=== PATIENT | male | born 1990 | race Caucasian/White ===

== ENCOUNTER 2019-07-17 01:39 | Emergency (ER) | payer MEDICAID ==
[~2019-07-17] VITALS: Ht 167.6 cm; Wt 73.0 kg
[2019-07-17] MEDS ORDERED: SODIUM CHLORIDE 0.9% 1,000 ML IV ONE (02:18)
[2019-07-17] MEDS ORDERED: LORAZEPAM 2MG/ML CPJ IM ONE (06:30)
[2019-07-17] MEDS ORDERED: OLANZAPINE 10 MG/VIAL IM ONE (06:30)
[2019-07-17] MEDS ORDERED: DIPHENHYDRAMINE 50MG/ML VIAL IM ONE (06:30)
[2019-07-17 06:50] LABS: CHLORIDE 104 mEq/L (98-107)
[2019-07-17 06:53] LABS: CLARITY URINE CLEAR (CLEAR); COLOR URINE YELLOW (YELLOW); KETONES URINE NEGATIVE (NEGATIVE); LEUKOCYTE ESTERASE URINE TRACE (NEGATIVE); NITRITE URINE NEGATIVE (NEGATIVE); OCCULT BLOOD URINE NEGATIVE (NEGATIVE); PROTEIN URINE NEGATIVE (NEGATIVE); SPECIFIC GRAVITY URINE 1.007 (1.005-1.030); UROBILINOGEN URINE 0.2 E.U./dL (0.2-1.0)
[2019-07-17 06:54] LABS: BASOPHILS % 0.5 % (0.0-2.0); EOSINOPHILS % 0.1 % (0.0-5.0); ETHANOL BLOOD < 10 mg/dL; HEMATOCRIT. 44.1 % (42.0-52.0); HEMOGLOBIN. 14.9 g/dL (14.0-18.0); LYMPHOCYTES % 17.4 % (20.0-50.0); MEAN CORPUSCULAR VOLUME 91.8 fL (80.0-94.0); MEAN PLATELET VOLUME 7.1 fl (7.4-10.4); MONOCYTES % 9.4 % (2.0-8.0); NEUTROPHILS % 72.6 % (40.0-76.0); PLATELET 286 x1000/uL (130-400); RED CELL DISTRIBUTION WIDTH 13.2 % (11.6-14.6)
[2019-07-17 07:06] LABS: *AMPHETAMINES SCREEN URINE PRESUMTIVE POSITIVE (NEGATIVE); *BARBITURATES SCREEN URINE NEGATIVE (NEGATIVE); *BENZODIAZEPINES SCREEN URINE NEGATIVE (NEGATIVE); *COCAINE SCREEN URINE NEGATIVE (NEGATIVE); METHADONE URINE SCREEN NEGATIVE (NEGATIVE); OPIATES URINE SCREEN NEGATIVE (NEGATIVE); PHENCYCLIDINE URINE SCREEN NEGATIVE (NEGATIVE)
[2019-07-17 07:07] LABS: CANNABINOID URINE SCREEN PRESUMTIVE POSITIVE (NEGATIVE)
[2019-07-17 12:20] VITALS: BP 138/83
== END 2019-07-17 12:32 ==
LOC: ER 01:55
DX: F23 Brief psychotic disorder (principal); F15.10 Other stimulant abuse, uncomplicated; F16.10 Hallucinogen abuse, uncomplicated
CPT/HCPCS: 36415; 80053; 80305; 80320; 81003; 85025; 96372; 99285; J1200; J2060; J3490; J7030; G0480

== ENCOUNTER 2022-10-13 20:57 | Emergency (ER) | payer MEDICAID, OTHER ==
[~2022-10-13] VITALS: Ht 167.6 cm; Wt 74.0 kg
[2022-10-13 21:57] LABS: BASOPHILS % 1.1 % (0.0-2.0); EOSINOPHILS % 1.1 % (0.0-5.0); HEMATOCRIT. 37.4 % (42.0-52.0); HEMOGLOBIN. 12.8 g/dL (14.0-18.0); LYMPHOCYTES % 14.1 % (20.0-50.0); MEAN CORPUSCULAR HEMOGLOBIN 31.7 pg (28.0-32.0); MEAN CORPUSCULAR VOLUME 92.3 fL (80.0-94.0); MEAN PLATELET VOLUME 8.1 fl (7.4-10.4); MONOCYTES % 6.3 % (2.0-8.0); NEUTROPHILS % 77.4 % (40.0-76.0); PLATELET 245 x1000/uL (130-400); RED BLOOD CELL COUNT 4.05 mill/uL (4.7-6.1); RED CELL DISTRIBUTION WIDTH 13.4 % (11.6-14.6)
[2022-10-13 22:09] LABS: CHLORIDE 102 mEq/L (98-107)
[2022-10-13 22:15] LABS: ETHANOL BLOOD < 10 mg/dL (-10)
[2022-10-13 22:15] LABS: CLARITY URINE CLEAR (CLEAR); COLOR URINE YELLOW (YELLOW); KETONES URINE TRACE (NEGATIVE); LEUKOCYTE ESTERASE URINE TRACE (NEGATIVE); NITRITE URINE NEGATIVE (NEGATIVE); OCCULT BLOOD URINE NEGATIVE (NEGATIVE); PH URINE 5.5 (4.5-8.0); PROTEIN URINE TRACE (NEGATIVE); SPECIFIC GRAVITY URINE 1.029 (1.005-1.030)
[2022-10-13 22:25] LABS: *AMPHETAMINES SCREEN URINE PRESUMTIVE POSITIVE (NEGATIVE); *BARBITURATES SCREEN URINE NEGATIVE (NEGATIVE); *BENZODIAZEPINES SCREEN URINE PRESUMTIVE POSITIVE (NEGATIVE); *COCAINE SCREEN URINE NEGATIVE (NEGATIVE); CANNABINOID URINE SCREEN NEGATIVE (NEGATIVE); METHADONE URINE SCREEN NEGATIVE (NEGATIVE); OPIATES URINE SCREEN NEGATIVE (NEGATIVE); PHENCYCLIDINE URINE SCREEN NEGATIVE (NEGATIVE)
[2022-10-14] MEDS ORDERED: POTASSIUM CHLORIDE INJ 40 MEQ in DEXT 5% WATER 250 ML IV ONE (00:30)
[2022-10-14] MEDS ORDERED: POTASSIUM CHLORIDE 20MEQ TABLET SR PO NR (00:30)
[2022-10-14] MEDS ORDERED: KCL 20MEQ/100ML X 2 FOR TOTAL KCL 40MEQ/200ML IV SCH (01:00)
[2022-10-14] MEDS ORDERED: LORAZEPAM 2MG/ML CPJ IM STA ×2 (10:49→11:50)
[2022-10-14] MEDS ORDERED: OLANZAPINE 10 MG/VIAL IM ONE (11:00)
[2022-10-14 13:33] VITALS: O2SAT 99
[2022-10-14 15:05] LABS: CHLORIDE 106 mEq/L (98-107)
[2022-10-15] MEDS: OLANZAPINE 5MG TABLET ODT PO SCH (17:00)
[2022-10-16] MEDS: OLANZAPINE 5MG TABLET ODT PO SCH ×2 (09:00→13:29)
[2022-10-16] MEDS ORDERED: ACETAMINOPHEN 325MG TABLET PO ONE (13:30)
[2022-10-16] MEDS ORDERED: DIPHENHYDRAMINE 50MG CAPSULE PO ONE (22:00)
[2022-10-16] MEDS ORDERED: DIPHENHYDRAMINE 25MG CAPSULE PO NR (22:15)
[2022-10-17] MEDS: OLANZAPINE 5MG TABLET ODT PO SCH (09:00)
[2022-10-17 13:12] VITALS: BP 102/84; PULSE 94; RESP 15; TEMP 98.5
== END 2022-10-17 14:12 | disposition home or self-care (01) ==
LOC: ER 20:57
DX: R45.1 Restlessness and agitation (principal); F20.9 Schizophrenia, unspecified; Z20.822 Contact with and (suspected) exposure to COVID-19
CPT/HCPCS: 80053; 80305; 80048; 81003; 80307; 80329; 80320; 82962; 85025; 36415; 99285; 87426; 96360; 96361; 96372; C9803; Z7610; J3490; J2060; J3480; Q0163; G0480